=== PATIENT | male | born 1945 | race Caucasian/White ===

== ENCOUNTER 2024-11-30 13:23 | Inpatient (IN) | payer OTHER, MEDICARE ==
[~2024-11-30] VITALS: Ht 182.9 cm; Wt 67.7 kg
[2024-11-30] MEDS ORDERED: iohexol 300mg/ml 100ml inj. ONE (14:10)
[2024-11-30 14:21] LABS: BASOPHILS % (AUTO) 0.1 % (0-1); EOSINOPHILS % (AUTO) 0.7 % (0-6); LYMPHOCYTES # (AUTO) 0.6 X10'3 (1.1-4.8); LYMPHOCYTES % (AUTO) 8.9 % (21-51); MEAN CORPUSCULAR HEMOGLOBIN 29.4 PG (27.0-31.0); MEAN CORPUSCULAR HGB CONC 31.6 g/dL (33.0-36.5); MEAN CORPUSCULAR VOLUME 93.1 FL (78-98); MEAN PLATELET VOLUME 10.6 FL (7.4-10.4); MONOCYTES # (AUTO) 0.3 X10'3 (0-0.9); MONOCYTES % (AUTO) 3.9 % (2-12); NEUTROPHILS # (AUTO) 5.9 X10'3 (1.8-7.7); NEUTROPHILS % (AUTO) 86.4 % (42-75); PLATELET COUNT 183 X10'3 (140-440); RED BLOOD COUNT 1.95 X10'6 (4.70-6.10); RED CELL DISTRIBUTION WIDTH 17.9 % (11.5-14.5); WHITE BLOOD COUNT 6.9 X10'3 (4.5-11.0)
[2024-11-30 14:29] LABS: HEMATOCRIT 18.2 % (42.0-52.0); HEMOGLOBIN 5.7 g/dl (14.0-17.9)
[2024-11-30 14:36] LABS: ALANINE AMINOTRANSFERASE 27 U/L (12-78); ALBUMIN/GLOBULIN RATIO 0.4 (1.1-1.5); ALKALINE PHOSPHATASE 84 IU/L (46-116); ANION GAP 10 (8-16); ASPARTATE AMINO TRANSFERASE 15 U/L (10-37); BILIRUBIN,TOTAL 0.6 MG/DL (0.1-1.0); BLOOD UREA NITROGEN 126 MG/DL (7-18); BUN/CREATININE RATIO 39.4 (10.0-20.0); CALCIUM 9.2 MG/DL (8.5-10.1); CHLORIDE 133 MMOL/L (99-107); GLUCOSE 113 MG/DL (70-104); POTASSIUM 3.6 MMOL/L (3.5-5.1); TOTAL CARBON DIOXIDE 27.5 MMOL/L (24-32); eCRCL 19 ML/MIN; eGFR 19 ML/MIN
[2024-11-30 14:39] LABS: APTT 24 SECONDS (22-32); INR 1.1 INR; PROTHROMBIN TIME 11.2 SECONDS (9.0-12.0)
[2024-11-30 14:41] LABS: SODIUM 170 MMOL/L (135-145)
[2024-11-30 15:29] LABS: ANISOCYTOSIS 1+; PLATELET ESTIMATE NORMAL; TOTAL CELLS COUNTED 100; TOXIC GRANULATION 1+
[2024-11-30 15:30] LABS: LARGE PLATELETS FEW; POLYCHROMASIA FEW
[2024-11-30 15:31] LABS: ELLIPTOCYTES FEW; HYPOCHROMASIA 1+; SCHISTOCYTES FEW
[2024-11-30] MEDS ORDERED: METO25TA6 PO (18:18)
[2024-11-30] MEDS ORDERED: TYL650S RC (18:18)
[2024-11-30] MEDS ORDERED: ACET-890 PO (18:18)
[2024-11-30] MEDS ORDERED: ASCO500C17 PO (18:18)
[2024-11-30] MEDS ORDERED: CHOL10006 PO (18:18)
[2024-11-30] MEDS ORDERED: FLO0.4C PO (18:18)
[2024-11-30] MEDS ORDERED: MAGN400O6 PO (18:18)
[2024-11-30] MEDS ORDERED: IPRA3AMP31 NEB (18:18)
[2024-11-30] MEDS ORDERED: BISA10SU60 RC (18:18)
[2024-11-30] MEDS ORDERED: NA P133E4 RC (18:18)
[2024-11-30] MEDS ORDERED: FERR325T28 PO (18:18)
[2024-11-30] MEDS ORDERED: DOCU100C40 PO (18:18)
[2024-11-30] MEDS ORDERED: MULT-1085 PO (18:18)
[2024-11-30] MEDS ORDERED: ASPI-1265 PO (18:18)
[2024-11-30] MEDS ORDERED: BUSP5TAB3 PO (18:18)
[2024-11-30] MEDS: ringers solution, lacted 1,000 ML IV ONE (19:11)
[2024-11-30 19:12] LABS: ANION GAP 14 (8-16); BLOOD UREA NITROGEN 127 MG/DL (7-18); BUN/CREATININE RATIO 40.4 (10.0-20.0); CALCIUM 9.2 MG/DL (8.5-10.1); CHLORIDE 132 MMOL/L (99-107); CREATININE 3.14 MG/DL (0.60-1.10); GLUCOSE 118 MG/DL (70-104); POTASSIUM 3.8 MMOL/L (3.5-5.1); TOTAL CARBON DIOXIDE 26.4 MMOL/L (24-32); eCRCL 19 ML/MIN; eGFR 19 ML/MIN
[2024-11-30 19:23] VITALS: BP 102/72; PULSE 97; RESP 24; TEMP 97.4
[2024-11-30 19:48] LABS: MAGNESIUM 2.7 MG/DL (1.5-2.4); PHOSPHORUS 4.6 MG/DL (2.3-4.5)
[2024-11-30 19:57] LABS: SODIUM 172 MMOL/L (135-145)
[2024-11-30] MEDS: pantoprazole 40 MG vial IV STA (20:34)
[2024-11-30] MEDS: dextrose 5%-water 1,000 ML IV ONE (20:34)
[2024-11-30 20:47] LABS: OCCULT BLOOD STOOL POSITIVE (Neg)
[2024-11-30 21:05] LABS: BILIRUBIN,URINE NEGATIVE (Neg); CLARITY,URINE TURBID (Clear); COLOR,URINE YELLOW (Yellow); GLUCOSE, URINE 100 mg/dl (Neg); KETONES,URINE NEGATIVE (Neg); LEUKOCYTE ESTERASE ,URINE TRACE (Neg); OCCULT BLOOD,URINE LARGE (Neg); PH,URINE 6.5 (4.8-8.0); PROTEIN,URINE >=300 mg/dl (Neg); UROBILINOGEN,URINE 0.2 E.U/dL (0.2-1.0)
[2024-11-30 21:12] LABS: UA COLLECTION TYPE NON-SPECIFIED
[2024-11-30 21:13] LABS: BACTERIA,URINE FEW /HPF (Neg); NITRITES, URINE NEGATIVE (Neg); RBC,URINE TNTC /HPF (0-2); SQUAMOUS EPITHELIAL CELL,UR FEW /LPF (FEW); WBC,URINE 0-4 /HPF (0-4)
[2024-11-30 21:14] LABS: AMORPHOUS URATES 2+
[2024-11-30 21:15] LABS: MUCUS STRANDS FEW /LPF (Neg)
[2024-11-30 21:20] LABS: SODIUM,URINE RANDOM 80 MEQ/L
[2024-11-30 21:27] LABS: OSMOLALITY UA 512 MOSM/K (50-1400)
[2024-12-01] VITALS (13 sets, daily range): BP systolic 78–119; BP diastolic 16–63; PULSE 87–102; RESP 15–42; TEMP 96.9–97.4; O2SAT 63–98
[2024-12-01] MEDS: dextrose 5%-water 1,000 ML IV SCH (01:25)
[2024-12-01 04:28] LABS: BASOPHILS % (AUTO) 0.1 % (0-1); EOSINOPHILS % (AUTO) 0.3 % (0-6); HEMATOCRIT 22.6 % (42.0-52.0); HEMOGLOBIN 7.4 g/dl (14.0-17.9); LYMPHOCYTES # (AUTO) 0.4 X10'3 (1.1-4.8); LYMPHOCYTES % (AUTO) 3.1 % (21-51); MEAN CORPUSCULAR HEMOGLOBIN 29.2 PG (27.0-31.0); MEAN CORPUSCULAR HGB CONC 32.5 g/dL (33.0-36.5); MEAN CORPUSCULAR VOLUME 89.6 FL (78-98); MEAN PLATELET VOLUME 9.5 FL (7.4-10.4); MONOCYTES # (AUTO) 0.3 X10'3 (0-0.9); MONOCYTES % (AUTO) 2.6 % (2-12); NEUTROPHILS # (AUTO) 11.1 X10'3 (1.8-7.7); NEUTROPHILS % (AUTO) 93.9 % (42-75); PLATELET COUNT 169 X10'3 (140-440); RED BLOOD COUNT 2.52 X10'6 (4.70-6.10); RED CELL DISTRIBUTION WIDTH 16.8 % (11.5-14.5); WHITE BLOOD COUNT 11.9 X10'3 (4.5-11.0)
[2024-12-01 04:36] LABS: ALBUMIN 1.6 G/DL (3.4-5.0); ANION GAP 10 (8-16); BLOOD UREA NITROGEN 117 MG/DL (7-18); BUN/CREATININE RATIO 38.5 (10.0-20.0); CALCIUM 8.6 MG/DL (8.5-10.1); CHLORIDE 130 MMOL/L (99-107); CREATININE 3.04 MG/DL (0.60-1.10); GLUCOSE 159 MG/DL (70-104); POTASSIUM 3.2 MMOL/L (3.5-5.1); TOTAL CARBON DIOXIDE 24.8 MMOL/L (24-32); eCRCL 19 ML/MIN; eGFR 20 ML/MIN
[2024-12-01 05:02] LABS: SODIUM 165 MMOL/L (135-145)
[2024-12-01] MEDS: ringers solution, lacted 1,000 ML IV SCH (07:27)
[2024-12-01] MEDS: ringers solution, lacted 1,000 ML IV ONE ×4 (07:27→10:06)
[2024-12-01] MEDS ORDERED: pantoprazole 40MG/NS 100ML BAG 100 ML IV SCH (08:00)
[2024-12-01] MEDS ORDERED: CefTRIAXone/D5W-Rocephin 1gm 50 ML IV SCH (08:40)
[2024-12-01] MEDS: piperacillin/tazo 3.375gm/50ml 50 ML IV SCH (09:18)
[2024-12-01 09:52] LABS: BASOPHILS % (AUTO) 0.2 % (0-1); EOSINOPHILS % (AUTO) 0.2 % (0-6); LYMPHOCYTES # (AUTO) 0.5 X10'3 (1.1-4.8); MEAN CORPUSCULAR HEMOGLOBIN 29.3 PG (27.0-31.0); MEAN CORPUSCULAR HGB CONC 32.3 g/dL (33.0-36.5); MEAN CORPUSCULAR VOLUME 90.5 FL (78-98); MEAN PLATELET VOLUME 9.9 FL (7.4-10.4); MONOCYTES # (AUTO) 0.3 X10'3 (0-0.9); MONOCYTES % (AUTO) 2.6 % (2-12); NEUTROPHILS # (AUTO) 11.4 X10'3 (1.8-7.7); PLATELET COUNT 171 X10'3 (140-440); RED BLOOD COUNT 2.34 X10'6 (4.70-6.10); RED CELL DISTRIBUTION WIDTH 17.3 % (11.5-14.5); WHITE BLOOD COUNT 12.3 X10'3 (4.5-11.0)
[2024-12-01 09:55] LABS: HEMATOCRIT 21.2 % (42.0-52.0); HEMOGLOBIN 6.8 g/dl (14.0-17.9)
[2024-12-01] MEDS: pantoprazole 40 MG vial IV SCH (10:06)
[2024-12-01 10:18] LABS: ALBUMIN 1.5 G/DL (3.4-5.0); ANION GAP 10 (8-16); BLOOD UREA NITROGEN 111 MG/DL (7-18); BUN/CREATININE RATIO 41.1 (10.0-20.0); CALCIUM 8.4 MG/DL (8.5-10.1); CHLORIDE 130 MMOL/L (99-107); GLUCOSE 141 MG/DL (70-104); POTASSIUM 3.2 MMOL/L (3.5-5.1); TOTAL CARBON DIOXIDE 26.2 MMOL/L (24-32); eCRCL 21 ML/MIN; eGFR 23 ML/MIN
[2024-12-01 10:19] LABS: SODIUM 166 MMOL/L (135-145)
[2024-12-01] MEDS ORDERED: sodium chloride 0.45% 1,000 ML IV SCH (10:40)
[2024-12-01] MEDS: morphine 10mg/ml inj. IV PRN (10:46)
[2024-12-01] MEDS: LORazepam 2 mg/ml vial IV PRN (10:46)
== END 2024-12-01 13:48 | DRG 70 ==
LOC: ER 13:24 → ED HOLD 21:37 → EDBEDREQ 12-01 00:17 → CICU 2S 12-01 00:43
PROVIDERS: ADMIT Surgery Surgical Critical Care; ATTEND Surgery Surgical Critical Care
PROC: BW211ZZ Computerized Tomography (CT Scan) of Abdomen and Pelvis using Low Osmolar Contrast (ICD-10-PCS; principal; 2024-11-30)
PROC: 30233N1 Transfusion of Nonautologous Red Blood Cells into Peripheral Vein, Percutaneous Approach (ICD-10-PCS; 2024-11-30)
PROC: 05HB33Z Insertion of Infusion Device into Right Basilic Vein, Percutaneous Approach (ICD-10-PCS; 2024-12-01)
DX: G93.41 Metabolic encephalopathy (principal); J18.9 Pneumonia, unspecified organism; D62 Acute posthemorrhagic anemia; E87.0 Hyperosmolality and hypernatremia; N17.9 Acute kidney failure, unspecified; Z66 Do not resuscitate; M48.02 Spinal stenosis, cervical region; E86.0 Dehydration; I95.9 Hypotension, unspecified; E87.6 Hypokalemia; I25.10 Atherosclerotic heart disease of native coronary artery without angina pectoris; F03.90 Unspecified dementia, unspecified severity, without behavioral disturbance, psychotic disturbance, mood disturbance, and anxiety; Z79.82 Long term (current) use of aspirin; Z95.1 Presence of aortocoronary bypass graft; Z51.5 Encounter for palliative care
CPT/HCPCS: 36410; 36415; 36430; 71045; 74176; 76937; 80048; 80053; 81001; 82272; 82948; 83605; 83735; 83930; 83935; 84100; 84145; 84300; 85007; 85025; 85610; 85730; 86885; 86900; 86901; 86920; 87040; 87081; 93005; 99291; A4314; A4620; A6213; C1751; C1758; G0378; J2060; J2274; J2470; J2543; J7040; J7070; J7120; P9016; Q9967